=== PATIENT | female | born 1955 | race Caucasian/White ===

== ENCOUNTER 2023-02-23 07:52 | Emergency (ER) | payer BC, OTHER ==
[2023-02-23 08:02] VITALS: RESP 18; TEMP 98; BMI 33.5
[2023-02-23] MEDS ORDERED: SODIUM CHLORIDE 0.9% 500 ML INFUS.BAG IV ONE (08:23)
[2023-02-23] MEDS ORDERED: ACETAMINOPHEN 1000 MG/100 ML BAG IVPB ONE (08:23)
[2023-02-23] MEDS ORDERED: ACETAMINOPHEN INJECTION 100 ML IVPB ONE (08:50)
[2023-02-23 08:59] LABS: HEMATOCRIT 40.4 % (32.4-45.2); HEMOGLOBIN 14.4 GM/dL (10.7-15.3); MCH 31.8 pg (25.7-33.7); MCHC 35.7 g/dl (32.0-36.0); MEAN CELL VOLUME 89.1 fl (80-96); MEAN PLT VOLUME 8.9 fl (7.5-11.1); PLATELET COUNT 186 10^3/uL (134-434); RBC 4.54 M/mm3 (3.60-5.2); RDW 12.6 % (11.6-15.6); WHITE BLOOD COUNT 7.4 K/mm3 (4.0-10.0)
[2023-02-23 09:24] LABS: POTASSIUM 4.3 mmol/L (3.5-5.1)
[2023-02-23 09:26] LABS: CALCIUM 9.3 mg/dL (8.5-10.1)
[2023-02-23 09:27] LABS: ALBUMIN 3.5 g/dl (3.4-5.0); BLOOD UREA NITROGEN 27.6 mg/dL (7-18)
[2023-02-23 09:30] LABS: CREATININE 1.1 mg/dL (0.55-1.3)
[2023-02-23 09:32] LABS: BILIRUBIN,TOTAL 0.8 mg/dL (0.2-1); TOT PROT 6.8 g/dl (6.4-8.2)
[2023-02-23] MEDS ORDERED: DIPHTH,PERTUSS(ACELL),TET 0.5 ML DISP.SYRIN IM ONE ×2 (10:34→10:37)
[2023-02-23 10:59] VITALS: BP 129/72; PULSE 61
[2023-02-23] MEDS ORDERED: ACETAMINOPHEN 500 MG TABLET (FP) PO ONE (11:30)
[2023-02-23] MEDS ORDERED: ACETAMINOPHEN 325 MG TABLET (FP) ONE (11:36)
== END 2023-02-23 11:58 | disposition home or self-care (01) ==
LOC: JER 07:52
PROC: 0HQ0XZZ Repair Scalp Skin, External Approach (ICD-10-PCS; principal; 2023-02-23)
PROC: 3E033NZ Introduction of Analgesics, Hypnotics, Sedatives into Peripheral Vein, Percutaneous Approach (ICD-10-PCS; 2023-02-23)
PROC: 3E0234Z Introduction of Serum, Toxoid and Vaccine into Muscle, Percutaneous Approach (ICD-10-PCS; 2023-02-23)
PROC: 3E0234Z Introduction of Serum, Toxoid and Vaccine into Muscle, Percutaneous Approach (ICD-10-PCS; 2023-02-23)
DX: R55 Syncope and collapse (principal); S01.01XA Laceration without foreign body of scalp, initial encounter; W18.2XXA Fall in (into) shower or empty bathtub, initial encounter; Y92.091 Bathroom in other non-institutional residence as the place of occurrence of the external cause; Z20.822 Contact with and (suspected) exposure to COVID-19
CPT/HCPCS: 0241U-QW; 12002-25; 36415; 70450-TC; 71045-TC-FY; 72125-TC; 80053; 82962; 83735; 84443; 84484; 85027; 90471; 90715; 93005; 93010; 96374; 99285-25

== ENCOUNTER 2023-03-06 11:37 | Emergency (ER) | payer BC, OTHER ==
[2023-03-06 11:50] VITALS: BP 147/85; TEMP 97.7; BMI 33.5
[2023-03-06 12:37] VITALS: PULSE 75; RESP 12
== END 2023-03-06 12:51 | disposition home or self-care (01) ==
LOC: JERFT 11:37 → JER 11:37 → JERFT 12:51
DX: Z48.02 Encounter for removal of sutures (principal)
CPT/HCPCS: 99281-25

== ENCOUNTER 2023-10-16 08:17 | Emergency (ER) | payer BC ==
[2023-10-16 08:24] VITALS: BMI 35.4
[2023-10-16] MEDS ORDERED: ALBUTEROL SO4 2.5/IPRATROPIUM 0.5 INH SOL 3 ML VIAL.NEB. NEB ONE ×2 (08:53→09:05)
[2023-10-16] MEDS ORDERED: SODIUM CHLORIDE 0.9% 500 ML INFUS.BAG IV ONE (08:53)
[2023-10-16] MEDS ORDERED: methylPREDNISolone NA SUCC 125 MG/2 ML VIAL IVPB ONE (08:53)
[2023-10-16] MEDS ORDERED: ACETAMINOPHEN 1000 MG/100 ML BAG IVPB ONE (08:53)
[2023-10-16] MEDS ORDERED: methylPREDNISolone NA SUCC 125 MG/2 ML VIAL ONE (09:05)
[2023-10-16] MEDS ORDERED: ACETAMINOPHEN INJECTION 100 ML IVPB ONE (09:05)
[2023-10-16 09:39] LABS: BASO % 0.3 % (0-2.0); HEMATOCRIT 41.6 % (32.4-45.2); HEMOGLOBIN 14.3 GM/dL (10.7-15.3); MCH 31.7 pg (25.7-33.7); MCHC 34.3 g/dl (32.0-36.0); MEAN CELL VOLUME 92.3 fl (80-96); MEAN PLT VOLUME 8.2 fl (7.5-11.1); MONO % 12.2 % (3.8-10.2); NEUT % 81.5 % (42.8-82.8); PLATELET COUNT 157 10^3/uL (134-434); RBC 4.51 M/mm3 (3.60-5.2); RDW 12.9 % (11.6-15.6); WHITE BLOOD COUNT 6.6 K/mm3 (4.0-10.0)
[2023-10-16 09:56] LABS: POTASSIUM 4.3 mmol/L (3.5-5.1)
[2023-10-16 09:58] LABS: CALCIUM 9.3 mg/dL (8.5-10.1)
[2023-10-16 09:59] LABS: ALBUMIN 3.4 g/dl (3.4-5.0); BLOOD UREA NITROGEN 15.3 mg/dL (7-18)
[2023-10-16 10:04] LABS: BILIRUBIN,TOTAL 0.9 mg/dL (0.2-1); TOT PROT 6.6 g/dl (6.4-8.2)
[2023-10-16] MEDS ORDERED: METOCLOPRAMIDE HCL INJECTION 10 MG/2 ML VIAL IVPUSH ONE (10:26)
[2023-10-16] MEDS ORDERED: MAGNESIUM SULFATE IN WATER 2 GM/50 ML IVPB IVPB ONE ×2 (10:26→10:52)
[2023-10-16] MEDS ORDERED: METOCLOPRAMIDE HCL INJECTION 10 MG/2 ML VIAL ONE (10:51)
[2023-10-16] MEDS ORDERED: ONDANSETRON 4 MG/2 ML VIAL IVPUSH ONE (11:01)
[2023-10-16] MEDS ORDERED: ONDANSETRON 4 MG/2 ML VIAL ONE (11:21)
[2023-10-16 11:56] LABS: N-TERMINAL BNP 669.6 pg/ml (5-125)
[2023-10-16 16:04] VITALS: BP 112/73; PULSE 85; RESP 16
[2023-10-16 16:05] VITALS: TEMP 98.3
== END 2023-10-16 12:18 | disposition home or self-care (01) ==
LOC: JER 08:17
PROC: 3E033GC Introduction of Other Therapeutic Substance into Peripheral Vein, Percutaneous Approach (ICD-10-PCS; principal; 2023-10-16)
PROC: 3E033GC Introduction of Other Therapeutic Substance into Peripheral Vein, Percutaneous Approach (ICD-10-PCS; 2023-10-16)
PROC: 3E033GC Introduction of Other Therapeutic Substance into Peripheral Vein, Percutaneous Approach (ICD-10-PCS; 2023-10-16)
PROC: 3E033GC Introduction of Other Therapeutic Substance into Peripheral Vein, Percutaneous Approach (ICD-10-PCS; 2023-10-16)
PROC: 3E033GC Introduction of Other Therapeutic Substance into Peripheral Vein, Percutaneous Approach (ICD-10-PCS; 2023-10-16)
PROC: 3E0F7GC Introduction of Other Therapeutic Substance into Respiratory Tract, Via Natural or Artificial Opening (ICD-10-PCS; 2023-10-16)
DX: R06.02 Shortness of breath (principal); R51.9 Headache, unspecified; R07.89 Other chest pain; R11.0 Nausea; J10.1 Influenza due to other identified influenza virus with other respiratory manifestations; Z20.822 Contact with and (suspected) exposure to COVID-19
CPT/HCPCS: 0241U-QW; 36415; 71045-TC-FY; 80053; 83880; 84484; 85025; 93005; 93010; 94640; 96365; 96375; 99285-25

== ENCOUNTER 2025-01-27 04:25 | Observation (INO) | payer BC ==
[2025-01-27] MEDS: ALBUTEROL SO4 2.5/IPRATROPIUM 0.5 INH SOL 3 ML VIAL.NEB. NEB SCH ×2 (05:05→13:13)
[2025-01-27] MEDS ORDERED: methylPREDNISolone NA SUCC 125 MG/2 ML VIAL ONE (05:06)
[2025-01-27] MEDS: methylPREDNISolone NA SUCC 125 MG/2 ML VIAL IVPB ONE (05:24)
[2025-01-27] MEDS ORDERED: MAGNESIUM SULFATE IN WATER 2 GM/50 ML IVPB IVPB ONE (06:30)
[2025-01-27 06:39] LABS: VENOUS BASE EXCESS 0.7 mmol/L (-2-2); VENOUS O2 SATURATION 89.5 % (70-80); VENOUS PCO2 40.6 mmHg (38-52); VENOUS PH 7.412 (7.310-7.410)
[2025-01-27 06:43] LABS: ABSOLUTE IMMATURE GRANULOCYTES 0.03 x10^3/uL (0.0-0.031); BASOPHILS # 0.04 x10^3/uL (0.01-0.08); EOSINOPHIL % 4.3 % (0.7-5.8); EOSINOPHILS # 0.29 x10^3/uL (0.04-0.36); HEMATOCRIT 45.2 % (34.1-44.9); HEMOGLOBIN 15.3 g/dL (11.2-15.7); MCHC 33.8 g/dl (32.2-35.5); MEAN CELL VOLUME 92.4 fl (79.4-94.8); MEAN PLT VOLUME 10.3 fl (9.4-12.3); MONOCYTE # 0.64 x10^3/uL (0.24-0.86); MONOCYTE % 9.5 % (4.7-12.5); PLATELET COUNT 203 x10^3/uL (182-369); RDW 11.7 % (12.4-16.4)
[2025-01-27] MEDS: MAGNESIUM SULF 50% (8.12 MEQ/2 ML-1 GM VIAL) IVPB ONE (06:43)
[2025-01-27 07:05] LABS: POTASSIUM 4.5 mmol/L (3.5-5.1)
[2025-01-27 07:06] LABS: CALCIUM 9.9 mg/dL (8.5-10.1)
[2025-01-27 07:07] LABS: ALBUMIN 3.6 g/dl (3.4-5.0); BLOOD UREA NITROGEN 17.4 mg/dL (7-18); MAGNESIUM 2.2 mg/dL (1.8-2.4)
[2025-01-27 07:10] LABS: CREATININE 1.2 mg/dL (0.55-1.3)
[2025-01-27 07:11] LABS: BILIRUBIN,TOTAL 1.3 mg/dL (0.2-1)
[2025-01-27 07:12] LABS: TOT PROT 6.5 g/dl (6.4-8.2)
[2025-01-27] MEDS ORDERED: ALBUTEROL SO4 2.5/IPRATROPIUM 0.5 INH SOL 3 ML VIAL.NEB. NEB PRN (08:57)
[2025-01-27] MEDS: METHIMAZOLE 10 MG TABLET PO ONE (09:13)
[2025-01-27] MEDS ORDERED: methylPREDNISolone NA SUCC 40 MG/1 ML VIAL IVPUSH SCH (10:00)
[2025-01-27 10:21] VITALS: BMI 34.5
[2025-01-27] MEDS: LISINOPRIL 20 MG TABLET PO SCH (10:58)
[2025-01-27] MEDS: methylPREDNISolone NA SUCC 40 MG/1 ML VIAL IVPUSH SCH (10:58)
[2025-01-27] MEDS: METHIMAZOLE 10 MG TABLET PO SCH (10:58)
[2025-01-27] MEDS: ENOXAPARIN NA (PORCINE) 40 MG/0.4 ML DISP.SYRIN SQ SCH (10:59)
[2025-01-27] MEDS: INSULIN ASPART SLIDING SCALE (NOVOLOG) 1 VIAL SQ SCH (12:15)
[2025-01-27] MEDS: GABAPENTIN 300 MG CAPSULE PO SCH (22:10)
[2025-01-27] MEDS: ATORVASTATIN CA 10 MG TABLET (FP) PO SCH (22:10)
[2025-01-27] MEDS: MONTELUKAST NA 10 MG TABLET PO SCH (22:10)
[2025-01-27] MEDS: LABETALOL HCL 100 MG TABLET (FP) PO SCH (22:10)
[2025-01-27] MEDS: BUDESONIDE/FORMETEROL FUMARATE 160/4.5 mcg INHALER IH SCH (22:11)
[2025-01-28 07:59] LABS: HEMATOCRIT 44.1 % (34.1-44.9); PLATELET COUNT 211 x10^3/uL (182-369); RDW 11.5 % (12.4-16.4)
[2025-01-28 08:08] LABS: POTASSIUM 4.8 mmol/L (3.5-5.1)
[2025-01-28 08:18] LABS: CALCIUM 9.9 mg/dL (8.5-10.1); MAGNESIUM 2.3 mg/dL (1.8-2.4)
[2025-01-28 08:22] LABS: CREATININE 1.3 mg/dL (0.55-1.3); PHOSPHOROUS 3.7 mg/dL (2.5-4.9)
[2025-01-28] MEDS: FLUTICASONE/UMECLIDIN/VILANTER(100-62.5-25 TRELEGY ELLIPTA) INAHLER IH SCH (08:23)
[2025-01-28] MEDS: predniSONE 20 MG TABLET (UD) PO SCH (11:09)
[2025-01-28] MEDS: METHIMAZOLE 10 MG TABLET PO SCH (11:11)
[2025-01-28] MEDS: LABETALOL HCL 200 MG TABLET (FP) PO SCH (11:12)
[2025-01-28 12:05] VITALS: BP 107/84; PULSE 74; RESP 20; TEMP 97.7
[2025-01-28] MEDS: POLYETHYLENE GLYCOL (HEALTHYLAX) 3350 17 GM PACKET PO SCH (13:36)
== END 2025-01-28 14:30 | disposition home or self-care (01) ==
LOC: JER 04:25 → JERBED 07:44 → J7W 09:37
PROVIDERS: ADMIT Internal Medicine; ATTEND Physician Assistant
PROC: 3E0F7GC Introduction of Other Therapeutic Substance into Respiratory Tract, Via Natural or Artificial Opening (ICD-10-PCS; principal; 2025-01-27)
PROC: 3E023GC Introduction of Other Therapeutic Substance into Muscle, Percutaneous Approach (ICD-10-PCS; 2025-01-27)
PROC: 3E033GC Introduction of Other Therapeutic Substance into Peripheral Vein, Percutaneous Approach (ICD-10-PCS; 2025-01-27)
PROC: 3E033GC Introduction of Other Therapeutic Substance into Peripheral Vein, Percutaneous Approach (ICD-10-PCS; 2025-01-27)
DX: J45.901 Unspecified asthma with (acute) exacerbation (principal); E11.9 Type 2 diabetes mellitus without complications; I10 Essential (primary) hypertension; E05.90 Thyrotoxicosis, unspecified without thyrotoxic crisis or storm; R05.9 Cough, unspecified
CPT/HCPCS: 0241U-QW; 36415; 71045-TC-FY; 80048; 80053; 82803; 82962; 83735; 84100; 85025; 85027; 93005; 93010; 94640; 94761; 96372; 96374; 96375; 96376; 99285-25; G0378